=== PATIENT | male | born 1990 | race Two or more races ===

== ENCOUNTER 2021-02-22 00:25 | Emergency (ER) | payer SELFPAY ==
[2021-02-22] MEDS ORDERED: Ketorolac Tromethamine 30 MG/ML VIAL ONE (00:56)
[2021-02-22] MEDS ORDERED: Clindamycin/D5W 600 mg/50 ml Premix Bag ONE (01:10)
[2021-02-22] MEDS ORDERED: Sodium Chloride 0.9% 1,000 ML ONE ×2 (01:10→01:50)
[2021-02-22 01:16] LABS: Hemoglobin 13.1 g/dL (14.0-18.0); Mean Corpuscular HGB CONC 28.7 g/dL (32.0-36.0); Mean Corpuscular Hemoglobin 24.6 pg (27.0-31.0); Mean Corpuscular Volume 85.5 fL (78.0-98.0); Mean Platelet Volume 7.9 fL (7.4-10.4); Platelet Count 125 thou/uL (130-400); RBC Distribution Width 14.4 % (11.5-14.5); Red Blood Cell (RBC) Count 5.35 mill/uL (4.70-6.10); White Blood Cell (WBC) Count 14.4 thou/uL (4.8-10.8)
[2021-02-22 01:21] LABS: #Eosinphils 0.1 thou/uL (0.0-0.7); #Lymphocytes 0.9 thou/uL (1.20-3.40); #Neutrophils 12.5 thou/uL (1.40-6.50); %Basophils 0.2 % (0.0-1.0); %Eosinophils 0.4 % (0.0-10.0); %Monocytes 6.8 % (0.0-10.0); %Neutrophils 86.6 % (42.0-75.0); Anisocytosis SLIGHT = 6-15 cells (100X) (0-5/hpf); Hypochromia SLIGHT = 6-15 cells (100X) (0-5/hpf); MDiff Complete? YES; Platelet Morphology Comment Appears Decreased; Poikilocytosis SLIGHT = 6-15 cells (100X) (0-5/hpf); Target Cells SLIGHT = 2-5 cells (100X) (0-1/hpf)
[2021-02-22 01:30] LABS: ALT (SGPT) 6 U/L (8-55); AST (SGOT) 11 U/L (5-34); Albumin 3.6 g/dL (3.5-5.0); Alkaline Phosphatase 105 U/L (40-110); Anion Gap 18 mmol/L (10-20); BUN (Urea Nitrogen) 11 mg/dL (8.9-20.6); Bilirubin, Total 0.4 mg/dL (0.2-1.2); CK (CPK) 59 U/L (30-200); Calc. Creatinine Clearance 0 mL/min (70-130); Calcium 8.9 mg/dL (7.8-10.44); Carbon Dioxide 20 mmol/L (22-29); Chloride 105 mmol/L (98-107); Globulin 3.7 g/dL (2.4-3.5); Glucose 123 mg/dL (70-105); Potassium 4.5 mmol/L (3.5-5.1); Protein, Total 7.3 g/dL (6.0-8.3); Sodium 138 mmol/L (136-145)
== END 2021-02-22 02:45 | disposition home or self-care (01) ==
LOC: NAV ERS 00:25
DX: L03.113 Cellulitis of right upper limb (principal)
CPT/HCPCS: 80053; 82550; 85025; 96365; 96375; J1885; J3490; J7050